=== PATIENT | female | born 1975 | race Caucasian/White ===

== ENCOUNTER 2018-05-09 11:30 | Emergency (ER) | payer BC ==
--- NOTE | 2018-05-09 13:36 | RAD ---
Indication: Evaluate for foreign body in the calf. 2 views of the lower leg demonstrates no fracture or dislocation. No obvious radiopaque foreign body is noted. No soft tissue swelling is noted. IMPRESSION: No obvious radiopaque foreign body is noted.
[2018-05-09 13:55] VITALS: BP 121/77
--- NOTE | 2018-05-09 17:38 | ED ---
Lower Extremity - HPI Summary HPI Summary: Patient is a 39-year-old female who presents emergency department for evaluation of wound to left lower leg. Patient states about 6 days ago she was walking her dog when he pulled her and she fell forward striking her left lower leg off of a wooden deck. Pt. states the area became bruised and she sustained an abrasion. States the bruising improved but her wound started to become erythematous and dark. States she has been putting tea tree oil and peroxide on it. Patient initially went test 5*urgent care for evaluation and was referred to the ER for further evaluation. Patient has no past medical history. She denies fevers, chills, nausea, vomiting. Symptoms are mild in severity. Walking and touching affected area makes symptoms worse. Rest makes symptoms better. - History of Current Complaint Chief Complaint: EDLacSutureRecheck Stated Complaint: FALL/LT LEG INJURY Time Seen by Provider: 05/09/18 12:01 Hx Obtained From: Patient Pain Intensity: 2 Pain Scale Used: 0-10 Numeric - Allergies/Home Medications Allergies/Adverse Reactions: Allergies Allergy/AdvReac Type Severity Reaction Status Date / Time casein Allergy GI Upset Verified 05/09/18 11:43 gluten Allergy GI Upset Verified 05/09/18 11:43 Home Medications: Home Medications Amitriptyline TAB* [Elavil TAB*] 40 mg PO QPM 05/09/18 [History Confirmed ] Levothyroxine Sodium [Synthroid] 150 mg PO DAILY 05/09/18 [History Confirmed ] PMH/Surg Hx/FS Hx/Imm Hx Previously Healthy: Yes - Immunization History Date of Tetanus Vaccine: 2016 Infectious Disease History: No Infectious Disease History: Denies: Traveled Outside the [place] in Last 30 Days - Family History Known Family History: Positive: Other - Noncontributory - Social History Occupation: Employed Full-time Lives: With Family Alcohol Use: None Substance Use Type: Reports: None Smoking Status (MU): Never Smoked Tobacco Review of Systems Constitutional: Negative Negative: Fever, Chills Gastrointestinal: Negative Negative: Vomiting, Nausea Positive: Other - Wound and pain left lower leg All Other Systems Reviewed And Are Negative: Yes Physical Exam Triage Information Reviewed: Yes Vital Signs On Initial Exam: Initial Vitals Temp Pulse Resp BP Pulse Ox 97.2 F 108 16 143/99 100 05/09/18 11:43 05/09/18 11:43 05/09/18 11:43 05/09/18 11:43 05/09/18 11:43 Vital Signs Reviewed: Yes Appearance: Positive: Well-Appearing - Pt. sitting in chair in NAD. Skin: Positive: Warm, Dry Head/Face: Positive: Normal Head/Face Inspection Eyes: Positive: Normal, EOMI Musculoskeletal: Positive: Other - Roughly 3-4cm superficial wound noted to the distal anterior left LE. Small area of escar in the center. Wound edges are mildly red. No drainage. Healing surrounding ecchymosis. Neurological: Positive: Normal, CN Intact II-III Psychiatric: Positive: Affect/Mood Appropriate Diagnostics - Vital Signs Vital Signs Temp Pulse Resp BP Pulse Ox 05/09/18 13:49 97.6 F 89 16 121/77 100 05/09/18 11:43 97.2 F 108 16 143/99 100 - Laboratory Lab Statement: Any lab studies that have been ordered have been reviewed, and results considered in the medical decision making process. Lower Extremity Course/Dx - Course Course Of Treatment: Pt. presenting for wound evaluation. She states she had a tetanus shot last year. She is afebrile and well appearing. Xray ordered to r/o FB and deep space infection. Xray per radiology is negative for acute findings. Pt. was examined by Dr. Khanna as well. Will start on bactroban ointment. Will have pt. fu. in the wound clean, consult ordered. Recommend stopping tea tree oil and peroxide. To return to ER if sxs change or worsen. Pt. understands and agrees with plan. - Diagnoses Differential Diagnosis/HQI/PQRI: Positive: Cellulitis, Infection Provider Diagnoses: Healing wound Discharge - Sign-Out/Discharge Documenting (check all that apply): Patient Departure - Discharge Plan Condition: Good Disposition: HOME Prescriptions: Mupirocin 2% OINT* [Bactroban 2 % Oint*] 1 applic TOPICAL BID #1 tube Patient Education Materials: Acute Wound Care (ED) Referrals: Marilu Yi MD [Primary Care Provider] - Additional Instructions: The wound clinic should contact you for a follow up appointment Keep wound clean and dry Antibiotic ointment as directed Tylenol or Motrin for pain as directed Return to ER for increased pain, redness, swelling, fever - Billing Disposition and Condition Condition: GOOD Disposition: Home
== END 2018-05-09 13:49 | disposition home or self-care (01) ==
LOC: ED 11:30
DX: S89.92XA Unspecified injury of left lower leg, initial encounter (principal); W19.XXXD Unspecified fall, subsequent encounter; Y92.9 Unspecified place or not applicable
CPT/HCPCS: 87070; 87205; 99282